=== PATIENT | male | born 1980 ===

== ENCOUNTER 2017-07-15 20:47 | Emergency (ER) | payer OTHER, BC ==
[2017-07-15 21:00] VITALS: BP 118/75; PULSE 65; RESP 16; TEMP 98; O2SAT 99
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
== END 2017-07-15 23:02 | disposition home or self-care (01) ==
LOC: H.ER 20:47
DX: M54.9 Dorsalgia, unspecified (principal); M25.561 Pain in right knee; M25.531 Pain in right wrist; V43.62XA Car passenger injured in collision with other type car in traffic accident, initial encounter; Y92.410 Unspecified street and highway as the place of occurrence of the external cause

== ENCOUNTER 2018-07-08 12:37 | Emergency (ER) | payer BC, OTHER ==
[2018-07-08 12:49] VITALS: O2SAT 100
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
--- NOTE | 2018-07-08 14:03 | CT ---
Date of service: 07/08/2018 PROCEDURE: CT MAXILLOFACIAL BONES WITHOUT CONTRAST HISTORY: r/o fx COMPARISON: None available. TECHNIQUE: Contiguous axial CT images of the maxillofacial bones were obtained. Coronal and sagittal reformats were generated. Radiation dose: Total exam DLP = 793.07 mGy-cm. This CT exam was performed using one or more of the following dose reduction techniques: Automated exposure control, adjustment of the mA and/or kV according to patient size, and/or use of iterative reconstruction technique. FINDINGS: NASAL BONES: Bilateral nasal bone fracture identified. Limited overlying soft tissue edema related. ORBITS: Unremarkable. PARANASAL SINUSES/ MASTOIDS: Right greater than left maxillary sinusmucosal inflammatory changes. MAXILLA: Unremarkable. MANDIBLE/ TEMPOROMANDIBULAR JOINTS: Unremarkable. SKULL BASE: Unremarkable. TEMPORAL BONES: Middle ears and mastoid grossly unremarkable. OTHER FINDINGS: None. IMPRESSION: Comminuted nasal bone fractures. No definite additional facial bone fracture identified. Right greater than left maxillary sinus mucosal inflammatory changes noted.
[2018-07-08 16:53] VITALS: BP 99/54; PULSE 61; RESP 18; TEMP 97.1
== END 2018-07-08 16:58 | disposition home or self-care (01) ==
LOC: H.ER 12:37
DX: S02.2XXA Fracture of nasal bones, initial encounter for closed fracture (principal); W22.8XXA Striking against or struck by other objects, initial encounter; Y92.89 Other specified places as the place of occurrence of the external cause